=== PATIENT | male | born 1990 | race Caucasian/White ===

== ENCOUNTER 2018-09-19 06:16 | Emergency (ER) | payer MEDICAID, OTHER ==
[2018-09-19 06:17] VITALS: BMI 28.1
[2018-09-19 06:30] VITALS: RESP 18; O2SAT 100
--- NOTE | 2018-09-19 07:07 | C.PDOC ---
History Of Present Illness 28 y/o male with history of DM, Asthma and Anxiety presents to ED with c/o right lower abdominal pain and upper abdominal "burning" sensation since 2 am associated with vomiting. Patient reports he is compliant with Lantus and Novolo g, denies fever, chills, diarrhea, blood in stool, dysuria, chest pain, back pain or any other complaints at this time. Time Seen by Provider: 09/19/18 07:01 Chief Complaint (Nursing): Abdominal Pain History Per: Patient History/Exam Limitations: no limitations Onset/Duration Of Symptoms: Hrs Current Symptoms Are (Timing): Still Present Location Of Pain/Discomfort: Diffuse, RLQ Past Medical History Reviewed: Historical Data, Nursing Documentation, Vital Signs Vital Signs: Last Vital Signs Temp 98.1 F 09/19/18 06:24 Pulse 77 09/19/18 06:24 Resp 18 09/19/18 06:24 BP 140/90 09/19/18 06:24 Pulse Ox 100 09/19/18 06:24 - Medical History PMH: Anxiety, Asthma, Diabetes Surgical History: No Surg Hx - [facility] Procedures SCROTUM & TUNICA I D (04/18/13) UNILATERAL ORCHIECTOMY (04/18/13) Family History: States: No Known Family Hx - Social History Hx Tobacco Use: No Hx Alcohol Use: No Hx Substance Use: No - Immunization History Hx Tetanus Toxoid Vaccination: No Hx Influenza Vaccination: No Hx Pneumococcal Vaccination: No Review Of Systems Constitutional: Negative for: Fever, Chills Cardiovascular: Negative for: Chest Pain Gastrointestinal: Positive for: Vomiting, Abdominal Pain Genitourinary: Negative for: Dysuria, Hematuria, Penile Pain Musculoskeletal: Negative for: Back Pain Skin: Negative for: Rash Physical Exam - Physical Exam Appears: Non-toxic, No Acute Distress Skin: Warm, Dry, No Rash Head: Atraumatic, Normacephalic Eye(s): bilateral: Normal Inspection Oral Mucosa: Moist Neck: Supple Cardiovascular: Rhythm Regular Respiratory: Normal Breath Sounds, No Rales, No Rhonchi, No Wheezing Gastrointestinal/Abdominal: Soft, Tenderness (RLQ/Diffuse), No Guarding, No Rebound Back: No CVA Tenderness Neurological/Psych: Oriented x3, Normal Speech, Normal Cognition ED Course And Treatment - Laboratory Results Result Diagrams: 09/19/18 08:09 09/19/18 08:09 O2 Sat by Pulse Oximetry: 100 (RA) Pulse Ox Interpretation: Normal Medical Decision Making Medical Decision Makin yr old male w/ hx of L testicular removal, DM2 p/w diffuse abd pain. No testicular pain. No rash or penile discharge. No recurrent or increased vomiting episodes w/ hematemesis. well appearing on exam. Given RLQ pain on exam will seek CT. Likely gastritis given upgoing abdominal pain that is a burning sensation from stomach. No dysuria, dark or bloody stool or trauma. No other complaints. Plan: CT abd/pelvis ordered. Zofran, Pepcid and IV fluids administered. 1052 labs largely unremarkable colitis on CT Pain improved, in NAD, abd non-ttp now no dysuria, urgency or frequency. If tolerates PO trial, clear for d/c home w/ return indications and f/u 1109 tolerating clears, pain improved, clear for d/c home Disposition - Disposition Referrals: [facility] [Outside] [facility]] Kristopher Sanz MD [Staff Provider] - Disposition: HOME/ ROUTINE Disposition Time: 10:53 Condition: GOOD Additional Instructions: PETAR DRUMMOND, thank you for letting us take care of you today. Your provider was Dieudonne Estrada and you were treated for NOT FEELING WELL. The emergency medical care you received today was directed at your acute symptoms. If you were prescribed any medication, please fill it and take as directed. It may take several days for your symptoms to resolve. Return to the Emergency Department if your symptoms worsen, do not improve, or if you have any other problems. Please contact your doctor or call one of the physicians/clinics you have been referred to that are listed on the Patient Visit Information form that is included in your discharge packet. Bring any paperwork you were given at discharge with you along with any medications you are taking to your follow up visit. Our treatment cannot replace ongoing medical care by a primary care pr ovider outside of the emergency department. Thank you for allowing the [facility] team to be part of your care today. If you had an X-Ray or CT scan: A Radiologist will review the ED reading if any change in treatment is needed we will contact you. If you had a blood, urine, or wound culture: It will take several days for the results, if any change in treatment is needed we will contact you. If you had an STI test: It will take 48 hours for the results. Please call after 1 week if you have not heard back. Prescriptions: Ciprofloxacin [Cipro] 500 mg PO BID 14 Days #28 tab Metronidazole [Flagyl] 500 mg PO TID 14 Days #42 tablet Instructions: Diverticulitis Forms: [facility] (Niuean) - Clinical Impression Clinical Impression: Colitis - Scribe Statement The provider has reviewed the documentation as recorded by the Seraibhuey Hunt All medical record entries made by the Seraibhuey were at my direction and personally dictated by me. I have reviewed the chart and agree that the record accurately reflects my personal performance of the history, physical exam, medical decision making, and the department course for this patient. I have also personally directed, reviewed, and agree with the discharge instructions and disposition.
[2018-09-19] MEDS ORDERED: Sodium Chloride 0.9% 1,000 ML IV ONE (07:08)
[2018-09-19 08:12] LABS: BASO % 0.4 % (0.0-2.0); EOS % 0.1 % (0.0-4.0); LYMPH # 2.3 K/uL (1.0-4.3); MEAN CELL VOLUME 83.3 fL (80.0-94.0); MEAN CORPUSCULAR HEMOGLOBIN 28.4 pg (27.0-31.0); MEAN CORPUSCULAR HGB CONC 34.1 g/dL (33.0-37.0); MEAN PLATELET VOLUME 10.4 fL (7.2-11.7); MONO # 0.8 K/uL (0.0-0.8); MONO % 7.2 % (0.0-10.0); NEUT # 7.7 K/uL (1.8-7.0); NEUT % 71.3 % (50.0-75.0); NRBC % 0.2 % (0.0-2.0); RBC 5.07 Mil/uL (4.40-5.90); RED CELL DISTRIBUTION WIDTH 13.6 % (11.5-14.5); WHITE BLOOD COUNT 10.7 K/uL (4.8-10.8)
[2018-09-19 08:17] LABS: HEMOGLOBIN 14.4 g/dL (12.0-18.0)
[2018-09-19 08:30] LABS: ALB/GLOB RATIO 1.5 (1.0-2.1); ALBUMIN 4.5 g/dL (3.5-5.0); ALT/SGPT 50 U/L (21-72); AST/SGOT 65 U/L (17-59); BLOOD UREA NITROGEN 9 mg/dL (9-20); CALCIUM 9.1 mg/dl (8.6-10.4); GFR NON-AFRICAN AMERICAN > 60; LIPASE 223 U/L (23-300)
[2018-09-19] MEDS ORDERED: Aluminum Hydroxide/Magnesium Hydroxide Susp (30 mL) PO ONE (08:39)
[2018-09-19] MEDS ORDERED: Iodixanol 320 MG/ML 100 ML BOTTLE IV ONE ×2 (09:05→09:15)
[2018-09-19] MEDS ORDERED: Aluminum Hydroxide/Magnesium Hydroxide Susp (30 mL) ONE (09:32)
--- NOTE | 2018-09-19 10:36 | CT ---
Date of service: 09/19/2018 PROCEDURE: CT Abdomen and Pelvis.. HISTORY: Diffuse abdominal pain, RLQ COMPARISON: None. TECHNIQUE: Contiguous axial images of the abdomen and pelvis performed following intravenous injection of approximately 100 cc Visipaque 320 contrast material. Additional 2D sagittal and coronal reformats generated. Radiation dose: Total exam DLP = 635.79 mGy-cm. This CT exam was performed using one or more of the following dose reduction techniques: Automated exposure control, adjustment of the mA and/or kV according to patient size, and/or use of iterative reconstruction technique. FINDINGS: LOWER THORAX: Heart size is within range of normal. No significant pericardial effusion. There is a small hiatal hernia with wall thickening of the distal esophagus likely due protrusion of gastric mucosa however esophagitis not excluded. LIVER: Liver exhibits normal size and attenuation pattern without masses collections or calcifications. Portal and splenic veins are opacified.. No gross lesion or ductal dilatation. GALLBLADDER AND BILE DUCTS: Gallbladder physiologically distended. No evidence of intraluminal gallbladder calculi. PANCREAS: Pancreas appears grossly unremarkable without obvious masses collections or calcifications. Note significant ductal dilatation. SPLEEN: Spleen exhibits normal size and attenuation pattern without masses collections or calcifications.. ADRENALS: No adrenal lesions KIDNEYS AND URETERS: Kidneys demonstrate symmetric nephrograms. No evidence of nephrolithiasis or hydronephrosis. No obvious renal masses or collections. BLADDER: Urinary bladder is incompletely distended which in part accounts for thick-walled appearance. Muscular hypertrophy may contribute however correlation with urinalysis recommended to exclude cystitis. REPRODUCTIVE: Vascular calcifications of the vas deferens. Prostate gland measures approximately 3.1 cm in transverse dimension.. APPENDIX: Normal appearing appendix best seen on axial image # [id number]. BOWEL: Evaluation of the bowel is somewhat limited due to incomplete opacification however note made of hyperdense material within the large bowel suggesting be related to recent ingestion of Maalox within the emergency room as per history. The stomach is distended with liquid food debris and air. Visualized loops of small bowel exhibit normal contour and caliber. No evidence of acute mechanical small bowel obstruction. There are a few scattered colonic diverticula seen along the sigmoid colon with slight wall thickening that is likely due to some combination of incomplete distention peristalsis and unopacified stool. Muscular hypertrophy may contribute. Note the possibility of underlying inflammatory process not excluded. Clinical correlation recommended. PERITONEUM: Unremarkable. No fluid collection. No free air. LYMPH NODES: Unremarkable. No enlarged lymph nodes. VASCULATURE: Unremarkable. No aortic aneurysm. No aortic atherosclerotic calcification or mural plaque present. BONES: Minor multilevel degenerative spondylosis of the lower thoracic and lumbar spine. There are several tiny sclerotic foci within the proximal left femur and pelvis likely representing bone islands or osteomas. OTHER FINDINGS: None. IMPRESSION: No evidence of acute appendicitis. There does appear to be scattered colonic diverticula along the sigmoid colon with mild wall thickening. These findings may in part be due to some combination of underdistention, peristalsis and under opacified stool however the possibility of an underlying inflammatory process not excluded. Clinical correlation recommended. Follow-up colonoscopy may be prudent if indicated.
[2018-09-19 11:21] VITALS: BP 156/95; PULSE 75; TEMP 97.9
== END 2018-09-19 11:21 | disposition home or self-care (01) ==
LOC: C.ER 06:16
DX: K52.9 Noninfective gastroenteritis and colitis, unspecified (principal); E11.9 Type 2 diabetes mellitus without complications
CPT/HCPCS: 74177; 80053; 82948; 83690; 85025; 96361; 96374; 96375; 99285; J2405; J7030; Q9967